=== PATIENT | female | born 1985 | race African-American/Black ===

== ENCOUNTER 2017-06-13 11:05 | Emergency (ER) | payer OTHER ==
[~2017-06-13] VITALS: Ht 162.6 cm; Wt 62.1 kg
[2017-06-13 11:35] VITALS: BP 159/107
[2017-06-13] MEDS ORDERED: IBUP-1007 PO (12:14)
[2017-06-13] MEDS ORDERED: PRED50TA PO (12:14)
[2017-06-13] MEDS ORDERED: BENZ100C PO (12:14)
--- NOTE | 2017-06-13 12:14 | PHYS DOC ---
Past Medical History Past Medical History: No Pertinent History Past Surgical History: No Surgical History Alcohol Use: None Drug Use: None Adult General Chief Complaint Chief Complaint: SORE THROAT HPI HPI Patient is a 31 year old female who presents with a sore throat and a cough for 1 day. Patient denies any fever. Review of Systems Review of Systems Constitutional: See history of present illness Eyes: Denies change in visual acuity, redness, or eye pain [] HENT: sore throat [] Respiratory: cough Cardiovascular: No additional information not addressed in HPI [] GI: Denies abdominal pain, nausea, vomiting, bloody stools or diarrhea [] : Denies dysuria or hematuria [] Musculoskeletal: Denies back pain or joint pain [] Integument: Denies rash or skin lesions [] Neurologic: Denies headache, focal weakness or sensory changes [] Endocrine: Denies polyuria or polydipsia [] Allergies Allergies Allergies Coded Allergies Type Severity Reaction Last Updated Verified No Known Drug Allergies 06/13/17 No Physical Exam Physical Exam Constitutional: Well developed, well nourished, no acute distress, non-toxic appearance. [] HENT: Normocephalic, atraumatic, bilateral external ears normal, oropharynx moist, no oral exudates, nose normal. [] Eyes: PERRLA, EOMI, conjunctiva normal, no discharge. [] Neck: Normal range of motion, no tenderness, supple, no stridor. [] Cardiovascular:Heart rate regular rhythm, no murmur [] Lungs & Thorax: Bilateral breath sounds clear to auscultation [] Abdomen: Bowel sounds normal, soft, no tenderness, no masses, no pulsatile masses. [] Skin: Warm, dry, no erythema, no rash. [] Back: No tenderness, no CVA tenderness. [] Extremities: No tenderness, no cyanosis, no clubbing, ROM intact, no edema. [] Neurologic: Alert and oriented X 3, normal motor function, normal sensory function, no focal deficits noted. [] Psychologic: Affect normal, judgement normal, mood normal. [] Current Patient Data Vital Signs Vital Signs Date Time Temp Pulse Resp B/P (MAP) Pulse Ox O2 Delivery O2 Flow Rate FiO2 06/13/17 11:35 98.6 88 18 100 Room Air 98.6 EKG EKG [] Radiology/Procedures Radiology/Procedures [] Course & Med Decision Making Course & Med Decision Making Pertinent Labs and Imaging studies reviewed. (See chart for details) Patient is in the ED with a sore throat for one day and a cough. Negative rapid strep. Symptoms are likely viral. Saltwater gargles recommended. Discharged with prednisone and Tessalon Perles. Follow-up with PCP in 1-2 weeks. Dragjennifer Disclaimer Dragon Disclaimer This electronic medical record was generated, in whole or in part, using a voice recognition dictation system. Departure Departure Impression: Primary Impression: Viral pharyngitis Additional Impression: Cough Disposition: HOME, SELF-CARE Condition: STABLE Referrals: RADHA THORNE APRN (PCP) followup with your doctor in one week Patient Instructions: Cough, Adult, [id number], Viral Pharyngitis Additional Instructions: You were seen for sore throat and a cough. Your strep test is negative, his symptoms are likely viral. Use saltwater gargles. Take the prescribed medicines as ordered. Follow-up with your doctor in one week. Come back to the emergency room if symptoms worsen. Scripts Ibuprofen (IBUPROFEN) 600 Mg Tablet 600 MG PO PRN Q6HRS Y for INFLAMMATION, #30 TAB Prov: KADEN MENDOZA APRN 06/13/17 Benzonatate (TESSALON PERLE) 100 Mg Capsule 1 CAP PO TID, #30 CAP Prov: KADEN MENDOZA APRN 06/13/17 Prednisone (PREDNISONE) 50 Mg Tablet 1 TAB PO DAILY, #5 TAB Prov: KADEN MENDOZA APRN 06/13/17 Problem Qualifiers KADEN MENDOZA APRN Jun 13, 2017 12:14
[2017-06-14 05:59] LABS: NEGATIVE OBC STREP NEG; POSITIVE OBC STREP POS
== END 2017-06-13 12:19 | disposition home or self-care (01) ==
LOC: ER 11:05
DX: J02.9 Acute pharyngitis, unspecified (principal); R05 Cough
CPT/HCPCS: 87070; 87880; 99283

== ENCOUNTER → 2017-06-29 | Outpatient (CLI) | payer OTHER ==
[2017-06-13 11:35] VITALS: BP 159/107
[~2017-06-29] MED LIST: BENZ100C PO; IBUP-1007 PO; PRED50TA PO
--- NOTE | 2017-06-29 15:57 | KCIC ---
INDICATION: Swelling in the right submandibular region. TECHNIQUE: Ultrasound of the area concern was performed. FINDINGS: Right submandibular gland appears enlarged, up to 3.7 x 1.5 cm in size. It demonstrates increased color-flow and the submandibular duct is dilated. Near the submandibular gland has a mildly prominent lymph node measuring 13 mm long axis. IMPRESSION: 1. Enlarged hypervascular submandibular gland with duct dilation concerning for sialoadenitis. 2. Dilated duct raises the possibility of nonvisualized obstructing ductal stone. Electronically signed by: Collins Zaidi MD (06/29/2017 3:54 PM) [id number]
== END | disposition home or self-care (01) ==
LOC: KCIC US 15:08
PROVIDERS: ATTEND Nurse Practitioner Family
DX: K11.5 Sialolithiasis (principal)
CPT/HCPCS: 76536

== ENCOUNTER 2017-11-07 12:08 | Emergency (ER) | payer OTHER ==
[2017-11-07 13:00] LABS: INFLUENZA A PATIENT NEGATIVE (NEGATIVE)
[2017-11-07 13:01] LABS: INFLUENZA B PATIENT POSITIVE (NEGATIVE); OBC FLU VALID
[2017-11-07 13:17] LABS: BILIRUBIN,URINE NEGATIVE (NEG); CLARITY,URINE CLOUDY; COLOR,URINE YELLOW; GLUCOSE,URINE NEGATIVE (NEG); NITRITE,URINE NEGATIVE (NEG); PROTEIN,URINE NEGATIVE (NEG-TRACE); UROBILINOGEN,URINE 0.2 mg/dL (0.2 mg/dL)
[2017-11-07 13:24] LABS: BACTERIA,URINE FEW /HPF (0-FEW); SQUAMOUS EPITHELIAL CELL,UR MOD /LPF
[2017-11-07 13:25] LABS: RBC,URINE 0 /HPF (0-2)
[2017-11-07] MEDS: ONDANSETRON ODT 4 MG TAB.RAPDIS. PO ×2 (13:57)
[2017-11-07 13:58] LABS: ADD MAN DIFF? NO
[2017-11-07 14:01] LABS: BASO % 0 % (0-3); EOS % 1 % (0-3); HEMATOCRIT 40.3 % (36.0-47.0); HEMOGLOBIN 13.4 g/dL (12.0-15.5); LYMPH # 1.5 x10^3/uL (1.0-4.8); LYMPH % 28 % (24-48); MEAN CORPUSCULAR HEMOGLOBIN 29 pg (25-35); MEAN CORPUSCULAR HGB CONC 33 g/dL (31-37); MEAN CORPUSCULAR VOLUME 88 fL (79-100); MONO # 0.6 x10^3/uL (0.0-1.1); MONO % 12 % (0-9); NEUT # 3.1 x10^3uL (1.8-7.7); NEUT % 59 % (31-73); PLATELET COUNT 244 x10^3/uL (140-400); RED BLOOD COUNT 4.57 x10^6/uL (3.50-5.40); RED CELL DISTRIBUTION WIDTH 13.6 % (11.5-14.5); WHITE BLOOD COUNT 5.3 x10^3/uL (4.0-11.0)
[2017-11-08 18:12] LABS: CHLAMYDIA PROBE Negative (Negative); GC PROBE Negative (Negative)
== END 2017-11-07 14:55 | disposition home or self-care (01) ==
LOC: ER 12:08
DX: O26.851 Spotting complicating pregnancy, first trimester (principal); Z3A.01 Less than 8 weeks gestation of pregnancy; O99.511 Diseases of the respiratory system complicating pregnancy, first trimester; J10.1 Influenza due to other identified influenza virus with other respiratory manifestations
CPT/HCPCS: 36415; 76801; 76817; 81001; 84702; 85025; 87086; 87491; 87591; 87804; 87804-59; 99285-25; Q0111; Q0162

== ENCOUNTER 2017-11-08 16:24 | Emergency (ER) | payer OTHER ==
[2017-11-08 16:41] LABS: URINE HCG POC HCG POSITIVE (Negative)
[2017-11-08 17:22] LABS: BILIRUBIN,URINE NEGATIVE (NEG); CLARITY,URINE CLEAR; COLOR,URINE AMBER; GLUCOSE,URINE NEGATIVE (NEG); NITRITE,URINE NEGATIVE (NEG); PROTEIN,URINE 30 mg/dL (NEG-TRACE); UROBILINOGEN,URINE 0.2 mg/dL (0.2 mg/dL)
[2017-11-08 17:29] LABS: BACTERIA,URINE FEW /HPF (0-FEW)
[2017-11-08 17:30] LABS: SQUAMOUS EPITHELIAL CELL,UR MOD /LPF
[2017-11-08] MEDS: POTASSIUM CHLORIDE 20 MEQ TABLET.ER. PO ×2 (19:03)
== END 2017-11-08 19:15 | disposition home or self-care (01) ==
LOC: ER 16:24
DX: O46.91 Antepartum hemorrhage, unspecified, first trimester (principal); Z3A.01 Less than 8 weeks gestation of pregnancy
CPT/HCPCS: 36415; 81001; 81025; 84702; 86901; 87086; 99284

== ENCOUNTER → 2018-02-21 | Outpatient (CLI) | payer OTHER | END | disposition home or self-care (01) | LOC: KCIC 14:39 | DX: M79.89 Other specified soft tissue disorders (principal) | CPT/HCPCS: 73562 ==